=== PATIENT | female | born 1970 | race Two or more races ===

== ENCOUNTER → 2018-10-13 | Day surgery (SDC) | payer OTHER ==
[~2018-10-13] MED LIST: METFORMIN HCL500 MG PO; PERCOCET 5-3251 EACH PO
== END | disposition home or self-care (01) ==
LOC: CIR.AMB 09:10 → EDSTATUS 10:30 → RECOVERY 10:30 → CIR.AMB 10:30
DX: N87.1 Moderate cervical dysplasia (principal)

== ENCOUNTER 2019-09-30 11:00 | Inpatient (IN) | payer OTHER ==
[~2019-09-30] VITALS: Ht 162.6 cm; Wt 109.3 kg
[2019-09-30] MEDS ORDERED: MULTIPLE VITAM1 EACH PO (15:08)
[2019-10-07] MEDS ORDERED: LEVSIN/SL0.125 MG SL (07:15)
[2019-10-07] MEDS ORDERED: MAXFE CAPLET1 EACH PO (07:15)
[2019-10-07] MEDS ORDERED: OXYC1TAB9 PO (07:15)
== END 2019-10-07 11:54 | disposition home or self-care (01) | DRG 742 ==
LOC: O/R 10-05 06:30 → OB/GYN 10-05 06:30
PROVIDERS: ADMIT Obstetrics & Gynecology Gynecology
PROC: 0UT70ZZ Resection of Bilateral Fallopian Tubes, Open Approach (ICD-10-PCS; 2019-10-05)
PROC: 0UT90ZZ Resection of Uterus, Open Approach (ICD-10-PCS; principal; 2019-10-05 08:45)
DX: D25.1 Intramural leiomyoma of uterus (principal); D62 Acute posthemorrhagic anemia; D25.2 Subserosal leiomyoma of uterus; N72 Inflammatory disease of cervix uteri; N92.0 Excessive and frequent menstruation with regular cycle; E03.8 Other specified hypothyroidism; E11.9 Type 2 diabetes mellitus without complications; Z79.4 Long term (current) use of insulin

== ENCOUNTER 2020-11-10 08:41 | Outpatient (CLI) | payer OTHER ==
[~2020-11-10 08:41] MED LIST changes: +LEVSIN/SL0.125 MG SL; +MAXFE CAPLET1 EACH PO; +MULTIPLE VITAM1 EACH PO; +OXYC1TAB9 PO
== END 2020-11-10 08:43 | disposition home or self-care (01) ==
LOC: SONOGRAMA 08:41
PROVIDERS: ATTEND Pathology Anatomic Pathology & Clinical Pathology
DX: E04.1 Nontoxic single thyroid nodule (principal)

== ENCOUNTER 2021-01-03 08:26 | Outpatient (CLI) | payer OTHER | END 2021-01-03 08:27 | disposition home or self-care (01) | LOC: NUCLEAR 08:26 | PROVIDERS: ATTEND Internal Medicine Hematology & Oncology | DX: C73 Malignant neoplasm of thyroid gland (principal); C77.5 Secondary and unspecified malignant neoplasm of intrapelvic lymph nodes; K43.9 Ventral hernia without obstruction or gangrene; D50.8 Other iron deficiency anemias | CPT/HCPCS: 78815; A9552 ==

== ENCOUNTER 2021-01-18 07:30 | Inpatient (IN) | payer OTHER ==
[~2021-01-18] VITALS: Ht 162.6 cm; Wt 112.0 kg
[2021-01-18] MEDS ORDERED: OMEPRA PO (09:40)
[2021-01-25] MEDS ORDERED: PRILOSEC OTC20 MG PO (08:06)
== END 2021-01-29 13:28 | disposition home or self-care (01) | DRG 627 ==
LOC: SURH 01-24 05:15 → O/R 01-24 05:15 → SURH 01-24 07:00
PROVIDERS: ADMIT Specialist; ATTEND Specialist
PROC: 3E0F7GC Introduction of Other Therapeutic Substance into Respiratory Tract, Via Natural or Artificial Opening (ICD-10-PCS; 2021-01-24)
PROC: 4A033R1 Measurement of Arterial Saturation, Peripheral, Percutaneous Approach (ICD-10-PCS; 2021-01-24)
PROC: 0GTJ0ZZ Resection of Thyroid Gland Isthmus, Open Approach (ICD-10-PCS; principal; 2021-01-24 07:00)
DX: C73 Malignant neoplasm of thyroid gland (principal); J98.01 Acute bronchospasm; E87.6 Hypokalemia; Z20.822 Contact with and (suspected) exposure to COVID-19

== ENCOUNTER 2021-01-30 08:35 | Outpatient (CLI) | payer OTHER ==
[~2021-01-30 08:35] MED LIST changes: +OMEPRA PO; +PRILOSEC OTC20 MG PO
== END 2021-01-30 18:00 | disposition home or self-care (01) ==
LOC: LAB 08:35
PROVIDERS: ATTEND Specialist
DX: C73 Malignant neoplasm of thyroid gland (principal); E83.51 Hypocalcemia

== ENCOUNTER → 2021-03-16 13:33 | Outpatient (CLI) | payer OTHER | END | disposition home or self-care (01) | LOC: NUCLEAR 13:33 | PROVIDERS: ATTEND Internal Medicine Sports Medicine | DX: C73 Malignant neoplasm of thyroid gland (principal); E89.0 Postprocedural hypothyroidism | CPT/HCPCS: 79005; A9517 ==

== ENCOUNTER 2021-03-20 13:35 | Outpatient (CLI) | payer OTHER | END 2021-03-20 13:36 | disposition home or self-care (01) | LOC: NUCLEAR 13:35 | PROVIDERS: ATTEND Internal Medicine Sports Medicine | DX: C73 Malignant neoplasm of thyroid gland (principal); E89.0 Postprocedural hypothyroidism | CPT/HCPCS: 79005; A9517 ==

== ENCOUNTER 2021-04-25 08:00 | Outpatient (CLI) | payer OTHER | END 2021-04-25 08:30 | disposition home or self-care (01) | LOC: PPH VACUNA 08:00 | DX: Z23 Encounter for immunization (principal) ==

== ENCOUNTER 2021-05-16 08:00 | Outpatient (CLI) | payer OTHER | END 2021-05-16 08:30 | disposition home or self-care (01) | LOC: PPH VACUNA 08:00 | DX: Z23 Encounter for immunization (principal) ==

== ENCOUNTER 2021-10-20 09:00 | Outpatient (CLI) | payer OTHER | END 2021-10-20 09:03 | disposition home or self-care (01) | LOC: PPH VACUNA 09:00 | PROVIDERS: ATTEND Emergency Medicine Pediatric Emergency Medicine | DX: Z23 Encounter for immunization (principal) ==

== ENCOUNTER 2022-06-08 10:30 | Outpatient (CLI) | payer OTHER | END 2022-06-08 10:32 | disposition home or self-care (01) | LOC: NUCLEAR 10:30 | PROVIDERS: ATTEND Internal Medicine Sports Medicine | DX: C73 Malignant neoplasm of thyroid gland (principal) ==